=== PATIENT | female | born 1980 | race Two or more races ===

== ENCOUNTER 2020-10-14 11:59 | Emergency (ER) | payer OTHER ==
[~2020-10-14] VITALS: Ht 149.9 cm; Wt 98.7 kg
--- NOTE | 2020-10-14 12:44 | NUR ---
TO RM 15 FROM [facility]
--- NOTE | 2020-10-14 13:03 | NUR ---
PT NOTICED [facility] 2 DAYS AGO AFTER HAVING SURGERY ON 10/01/20 FOR REMOVAL OF CYST. PT STATES PAIN 5/10 WHEN TOUCHED IS SIGNIFICANTLY WORSE.
--- NOTE | 2020-10-14 13:08 | NUR ---
BREAK RN: PT ABLE TO PROVIDE URINE SPECIMAN. SPECIMAN WALKED TO LAB. PT PLACED ON AUTO BP AND PULSE OX MONITORING.
[2020-10-14 13:19] LABS: MICROSCOPIC INDICATED
[2020-10-14 13:52] LABS: BASOPHILS % (AUTO) 1 % (0-1); EOSINOPHILS % (AUTO) 3 % (1-7); LYMPHOCYTES % (AUTO) 20 % (22-44); MEAN CORPUSCULAR HEMOGLOBIN 29.7 pg (27.0-34.8); MEAN CORPUSCULAR HGB CONC 33.5 g/dL (32.4-35.8); MEAN PLATELET VOLUME 8.4 fL (7.4-10.4); MONOCYTES % (AUTO) 8 % (2-9); NEUTROPHILS % (AUTO) 69 % (42-75); PLATELET COUNT 466 x10^3/uL (130-400); RED BLOOD COUNT 4.18 x10^6/uL (3.82-5.3)
[2020-10-14] MEDS ORDERED: HYDROcodone/APAP 5/325 TABLET ONE (13:57)
[2020-10-14 14:00] LABS: ALANINE AMINOTRANSFERASE 33 U/L (12-78); ALBUMIN 3.4 g/dL (3.4-5.0); ANION GAP 7 mmol/L (5-15); CALCIUM 8.7 mg/dL (8.5-10.1); CHLORIDE 105 mmol/L (98-107); CREATININE 0.53 mg/dL (0.55-1.02)
[2020-10-14] MEDS ORDERED: SODIUM CHLORIDE FLUSH 10ML SYR IVF ONE (14:00)
[2020-10-14] MEDS ORDERED: HYDROcodone/APAP 5/325 TABLET PO ONE (14:00)
[2020-10-14 14:04] LABS: ALKALINE PHOSPHATASE 65 U/L (45-117); BILIRUBIN,TOTAL 0.8 mg/dL (0.2-1.0); TOTAL PROTEIN 7.5 g/dL (6.4-8.2)
[2020-10-14] MEDS ORDERED: OMNIPAQUE 350 MG/ML, 100ML BOTTLE ONE (14:30)
--- NOTE | 2020-10-14 14:57 | NUR ---
PT TO RADIOLOGY FOR CT OF ABD.
[2020-10-14 15:31] VITALS: BP 116/74
== END 2020-10-14 15:35 | disposition home or self-care (01) ==
LOC: ED 12:54
DX: S30.1XXA Contusion of abdominal wall, initial encounter (principal); X58.XXXA Exposure to other specified factors, initial encounter; Y93.89 Activity, other specified; Y92.89 Other specified places as the place of occurrence of the external cause; Y99.8 Other external cause status
CPT/HCPCS: 36415; 74177; 80053; 81001; 84703; 85025; 87086; 99285; Q9967